=== PATIENT | female | born 1990 | race Caucasian/White ===

== ENCOUNTER 2021-08-29 14:50 | Inpatient (IN) ==
[2021-08-29] MEDS ORDERED: LACTATED RINGER'S 1,000 ML IV PRN (14:56)
[2021-08-29] MEDS ORDERED: OXYTOCIN 30 UNITS/500 ML BAG IV PRN ×2 (14:56→19:23)
[2021-08-29] MEDS ORDERED: PENICILLIN G POTASSIUM 6 MU in DEXTROSE 5% 250 ML IV STA (15:02)
[2021-08-29 15:21] LABS: Hematocrit (blood only) 39.2 % (37-47); Hemoglobin 13.2 g/dL (12.0-16.0); Mean Corpuscular Hemoglobin 30.3 pg (25-34); Mean Corpuscular Hgb Conc 33.7 g/dL (32-36); Mean Corpuscular Volume 90.1 fL (80-100); Mean Platelet Volume 11.3 fL (7.4-10.4); Platelet Count 293 K/uL (130-400); RDW Coefficient of Variation 13.4 % (11.5-14.5); RDW Standard Deviation 44.8 fL (36.4-46.3); Red Blood Count 4.35 M/uL (4.2-5.4)
[2021-08-29] MEDS ORDERED: BUPIVACAINE 0.25% 30 ML VIAL ONE (15:58)
[2021-08-29] MEDS ORDERED: ePHEDrine sulfate 50 MG/ML AMP ONE (15:58)
[2021-08-29] MEDS ORDERED: SODIUM CHLORIDE 0.9% INJ 10 ML VIAL ONE (15:58)
[2021-08-29] MEDS ORDERED: fentaNYL 2MCG/ML ROPIVACAINE 1.25MG/ML 100 ML BAG EPI ONE (15:59)
[2021-08-29] MEDS ORDERED: fentaNYL citrate 100 MCG/2 ML VIAL ONE (15:59)
--- NOTE | 2021-08-29 16:41 | Anesthesiology Consultation ---
Date of Service August 29, 2021 Assessment & Plan Chart Review Chart Review: Patient NOT seen in Pre Admission Testing and Acceptable Risk for Labor Epidural Consults Requested none Proposed Anesthesia Risk / Benefits Reviewed With: PT / POA / Parent / Guardian, Accepts Plan and Informed Consent Obtained History Height/Weight Height: 5 ft 7 in Weight: 83.007 kg Allergies Allergy/AdvReac Type Severity Reaction Status Date / Time No Known Drug Allergies Allergy Unknown Verified 08/29/21 11:06 Medications Home Medications Medication Instructions Recorded Confirmed Last Taken prenat.vits,sami,dcw-sihp-hiqoa 1 tab PO DAILY 01/02/21 08/29/21 08/28/21 08:00 famotidine 20 mg tablet (Pepcid) 20 mg PO HS 08/29/21 08/29/21 08/28/21 21:00 Active Medications Generic Name Dose Route Start Last Admin Trade Name Freq PRN Reason Stop Dose Admin Lactated Ringer's 1,000 mls @ 125 mls/hr 08/29/21 14:56 08/29/21 15:55 Lr IV 08/31/21 14:55 999 mls/hr .Q8H PRN Infusion L&D Protocol Protocol Past Medical History Medical History in second trimester fetus with Type 1 SMA IUD (intrauterine device) in place mirena Mitral regurgitation Mitral valve prolapse PVCs (premature ventricular contractions) SMA (spinal muscular atrophy) patient is carrier, 2019 +SMA Varicella vaccination Past Family History Family History (Updated 01/02/21 @ 10:54 by Moni Maria) Father Prostate cancer Bladder cancer Grandfather (Paternal) Leukemia Grandfather (Maternal) Heart disease Past Surgical History Surgical History No pertinent past surgical history Social History Smoking Status: Never smoker Hx Alcohol Use: No Hx Substance Use: No substance use type: does not use Physical Exam Vital Signs Last Vital Signs Temp 37.1 C 08/29/21 14:50 Pulse 64 08/29/21 16:40 Resp 20 08/29/21 14:50 BP 108/70 08/29/21 16:40 Pulse Ox 100 08/29/21 16:37 Testing Laboratory Results 08/29/21 15:06
[2021-08-29] MEDS ORDERED: NALBUPHINE HCL INJ 10 MG/ML AMP IV PRN (16:42)
[2021-08-29] MEDS ORDERED: ePHEDrine sulfate 50 MG/ML AMP IV PRN (16:42)
[2021-08-29] MEDS ORDERED: diphenhydrAMINE 50 MG/ML VIAL IV PRN (16:42)
[2021-08-29] MEDS ORDERED: NALOXONE HCL 1 MG in SODIUM CHLORIDE 0.9% 1000ML 1,000 ML IV PRN (16:42)
[2021-08-29] MEDS ORDERED: fentaNYL 2MCG/ML ROPIVACAINE 1.25MG/ML 100 ML BAG EPI PRN (16:42)
[2021-08-29] MEDS ORDERED: NALOXONE HCL 0.4 MG/1 ML VIAL/CARP IV PRN (16:42)
[2021-08-29] MEDS ORDERED: ONDANSETRON INJ 2 MG/ML 2 ML VIAL IV PRN (16:42)
[2021-08-29] MEDS ORDERED: PENICILLIN G POTASSIUM 3 MU in DEXTROSE 5% 100 ML IV PRN (17:56)
--- NOTE | 2021-08-29 18:57 | Delivery Summary ---
Vaginal Delivery Summary Date of Service August 29, 2021 Vaginal Delivery Summary and 2nd Degree LAC Patient arrived in labor first baby group B strep positive was given prophylactic antibiotics Covid negative was 5 cm on arrival requested epidural this was given when she was fully dilated with pressure artificial rupture of membranes for clear fluid she then pushed for approximately 45 minutes delivering a baby in occiput anterior position fluid was clear mouth and then nares suctioned with bulb gentle traction on the baby easy delivery no excessive force live vigorous female infant cord clamped and cut cord blood obtained placenta removed with gentle traction small second-degree tear repaired with 3-0 Vicryl sponge instrument counts correct estimated blood loss 200 mL [facility] Vaginal Delivery Charge Delivery Type Details: and 2nd Degree LAC
[2021-08-29] MEDS ORDERED: BENZOCAINE 20% AER SPR 82.5 GM CAN EXT PRN (19:23)
[2021-08-29] MEDS ORDERED: ACETAMINOPHEN 325 MG TAB PO PRN (19:23)
[2021-08-29] MEDS ORDERED: IBUPROFEN 600 MG TAB PO PRN (19:23)
[2021-08-29] MEDS ORDERED: DIPHTHERIA/TETANUS/PERTUSSIS 0.5 ML SYR/VIAL IM ONE (19:23)
[2021-08-29] MEDS ORDERED: bisacodyL 10 MG SUPP PR PRN (19:23)
[2021-08-29] MEDS ORDERED: oxyCODONE/ACETAMINOPHEN 5mg/325mg TAB PO PRN (19:23)
[2021-08-29] MEDS ORDERED: HYDROCORTISONE ACETATE 25 MG SUPP PR PRN (19:23)
[2021-08-29] MEDS ORDERED: SUPERCREAM 0.870% 15 GM JAR EXT PRN (19:23)
--- NOTE | 2021-08-29 20:20 | Anesthesia Procedure Note ---
Date of Service August 29, 2021 Anesthesia Post Epidural Note Vital Signs Vital Signs: Temp Pulse Resp BP Pulse Ox 37.5 C 55 L 18 160/95 H 100 08/29/21 19:05 08/29/21 20:19 08/29/21 20:05 08/29/21 20:19 08/29/21 18:57 Pain Intensity Perineal: Pain Intensity: 0 Notes Mental Status: alert / awake / arousable Nausea / Vomiting: adequately controlled Pain: adequately controlled Airway Patency, RR, SpO2: stable & adequate BP & HR: stable & adequate Hydration State: stable & adequate Neuraxial Anesthesia: was administered and sensory block is resolving Anesthetic Complications: no major complications apparent and Pt Satisfied with anesthetic care Epidural: Removed without complications and With tip intact
[2021-08-29] MEDS: DOCUSATE SODIUM 100 MG CAP PO SCH (21:20)
--- NOTE | 2021-08-30 06:11 | Obstetrical Progress Note ---
Date of Service <Triston Groves DO - Last Filed: 08/30/21 07:21> August 30, 2021 Assessment & Plan <Triston Groves DO - Last Filed: 08/30/21 07:21> (1) Encounter for care and examination after delivery: 31 yo post day 1 from vaginal delivery, doing well. -Continue routine post care. - vital signs reviewed and WNL. (Tmax 37.6) -Blood type O-, GBS +, Rubella Immune -Encourage ambulation, monitor and control pain with Motrin, tylenol PRN, resume regular diet, monitor lochia. -encourage breast feeding -hemoglobin 13.2 <Joni Galicia MD, FACOG - Last Filed: 08/30/21 07:22> (1) Encounter for care and examination after delivery: Subjective <Triston Groves DO - Last Filed: 08/30/21 07:21> Ambulation: ambulating normally Voiding: no voiding problems Passing Gas:: Yes Diet Tolerance:: regular diet Lochia:: Small Feeding Type:: breast feeding Current Pain Level(1-10): 0 Review of Systems Denies fever, chills, sweats Denies shortness of breath, difficulty breathing, chest pain, palpitations, chest pressure. Denies breast pain. Denies dysuria. Denies headache or changes in vision Physical Exam <Triston Groves DO - Last Filed: 08/30/21 07:21> General: Alert, oriented. No acute distress. Cardiac: Regular rate and rhythm, no murmurs/rubs/gallops. Respiratory: Clear to auscultation bilaterally a/p, no wheezes/rales/rhonchi. No increased work of breathing. Symmetrical chest rise. No respiratory distress. Abdomen: Soft, nontender, nondistended. Bowel sounds present. Uterus: Uterine fundus firm, palpable [] cm below umbilicus. Lower Extremities: No lower extremity edema or swelling. No deep calf pain. Caryn's negative bilaterally Results & Data ([facility]) <Triston Groves DO - Last Filed: 08/30/21 07:21> Vital Signs (Past 12 Hours) Vital Signs Temp Pulse Pulse Pulse Resp BP BP 08/30/21 02:47 36.9 C 51 L 16 08/29/21 23:55 37.1 C 62 16 119/77 08/29/21 21:30 37.1 C 56 L 18 118/74 08/29/21 21:05 37.6 C H 18 08/29/21 21:04 56 L 140/72 08/29/21 20:49 56 L 151/87 H 08/29/21 20:36 57 L 135/78 08/29/21 20:35 18 08/29/21 20:34 56 L 156/91 H 08/29/21 20:19 55 L 160/95 H 08/29/21 20:05 18 08/29/21 20:04 58 L 134/88 08/29/21 19:50 18 08/29/21 19:49 57 L 134/85 08/29/21 19:35 18 08/29/21 19:34 57 L 128/71 08/29/21 19:20 18 08/29/21 19:19 56 L 126/69 08/29/21 19:05 37.5 C 75 20 08/29/21 19:04 75 133/68 08/29/21 18:57 63 08/29/21 18:53 73 08/29/21 18:52 71 08/29/21 18:49 86 133/60 08/29/21 18:47 74 08/29/21 18:42 95 H 08/29/21 18:40 82 08/29/21 18:37 82 08/29/21 18:36 37.3 C 102 H 20 137/90 08/29/21 18:32 88 08/29/21 18:27 64 08/29/21 18:22 84 08/29/21 18:20 65 132/79 08/29/21 18:17 71 08/29/21 18:12 94 H BP Pulse Ox 08/30/21 02:47 08/29/21 23:55 100 08/29/21 21:30 97 08/29/21 21:05 08/29/21 21:04 08/29/21 20:49 08/29/21 20:36 08/29/21 20:35 08/29/21 20:34 08/29/21 20:19 08/29/21 20:05 08/29/21 20:04 08/29/21 19:50 08/29/21 19:49 08/29/21 19:35 08/29/21 19:34 08/29/21 19:20 08/29/21 19:19 08/29/21 19:05 133/68 08/29/21 19:04 08/29/21 18:57 100 08/29/21 18:53 87 L 08/29/21 18:52 100 08/29/21 18:49 08/29/21 18:47 100 08/29/21 18:42 83 L 08/29/21 18:40 88 L 08/29/21 18:37 99 08/29/21 18:36 08/29/21 18:32 100 08/29/21 18:27 100 08/29/21 18:22 96 08/29/21 18:20 08/29/21 18:17 99 08/29/21 18:12 93 <Joni Galicia MD, FACOG - Last Filed: 08/30/21 07:22> Co-Signing Physician Notes Resident Physician Supervision Note: I was present with Dr. Groves during the history and exam. I discussed the case with the resident and agree with the findings and plan as documented in the note. Any exceptions or clarifications are listed here: [None] Documented By: Joni Galicia MD, FACOG Resident Activity Tracking <Triston Groves DO - Last Filed: 08/30/21 07:21> Resident Involvement: Resident Care Provided Care Provided: OB Delivery
[2021-08-30] MEDS: PRENATAL VITAMIN 1 TAB PO SCH (07:54)
[2021-08-30] MEDS: DOCUSATE SODIUM 100 MG CAP PO SCH ×2 (07:54→20:21)
[2021-08-30] MEDS ORDERED: NON-FORMULARY MEDICATION (Prenat.Vits,Cal,Min-Iron-Folic tablet) PO SCH (09:00)
[2021-08-30 09:42] LABS: Hematocrit (blood only) 36.2 % (37-47); Hemoglobin 12.1 g/dL (12.0-16.0); Mean Corpuscular Hemoglobin 30.4 pg (25-34); Mean Corpuscular Hgb Conc 33.4 g/dL (32-36); Mean Platelet Volume 11.2 fL (7.4-10.4); Platelet Count 249 K/uL (130-400); RDW Coefficient of Variation 13.6 % (11.5-14.5); Red Blood Count 3.98 M/uL (4.2-5.4); White Blood Count 16.28 K/uL (4.8-10.8)
[2021-08-30] MEDS ORDERED: bisacodyL 5 MG TABEC PO SCH (20:00)
[2021-08-31 06:17] LABS: Hematocrit (blood only) 34.8 % (37-47); Hemoglobin 11.8 g/dL (12.0-16.0)
--- NOTE | 2021-08-31 07:45 | Obstetrical Progress Note ---
Date of Service August 31, 2021 Assessment & Plan (1) Encounter for care and examination after delivery: 31 yo PP2 from , doing well -Meeting all pp milestones -O-/rubella immune/, s/p rhogam -f/u 6 weeks for appt, stable for d/c home today Subjective Ambulation: ambulating normally Voiding: no voiding problems Passing Gas:: Yes Diet Tolerance:: regular diet Lochia:: Small Feeding Type:: breast feeding Pain well managed with medication Review of Systems Denies fevers, chills, n/v, RIOS, CP, SOB Physical Exam Constitutional WD/WN, vitals as above no acute distress Respiratory normal respiratory effort, lungs clear to auscultation Cardiovascular RRR, no murmur, no edema Gastrointestinal (Abdomen) Percussion/Palpation: abdomen soft; abdomen nontender fundus firm at umbilicus and NT Musculoskeletal BLE symmetric, nonerythematous, nontender Results & Data ([facility]) Vital Signs (Past 12 Hours) Vital Signs Temp Pulse Resp BP Pulse Ox 08/30/21 23:45 98.2 F 61 16 117/70 100
[2021-08-31] MEDS: PRENATAL VITAMIN 1 TAB PO SCH (08:53)
[2021-08-31] MEDS: DOCUSATE SODIUM 100 MG CAP PO SCH (08:53)
== END 2021-08-31 14:41 | disposition home or self-care (01) | DRG 807 ==
LOC: OPB 14:50 → 4S1 14:51 → 4S2 21:38